=== PATIENT | female | born 1965 | race Hispanic/Latino ===

== ENCOUNTER 2018-12-22 09:20 | Emergency (ER) | payer MEDICARE ==
[2018-12-22 09:26] VITALS: BP 125/88
--- NOTE | 2018-12-22 09:40 | Emergency Department Report ---
Abscess Boil HPI - HPI Chief Complaint: Animal Bite Stated Complaint: SPIDER BITE Time Seen by Provider: 12/22/18 09:38 Duration: 2 Days Location: Lower Extremity Severity: Mild History: Yes Pain, Yes Previous History, Yes Insect Bite, No Fever, No Purulent Drainage, No Numbness, No Foreign Body HPI: 53 yo with insect bite RLE 2 days ago. no abscess. red and inflammed. no necrosis. no fever or chills. Home Medications: Previous Rx's Medication Instructions Recorded Last Taken Type Amoxicillin [Trimox CAP] 500 mg PO BID #20 capsule 12/22/18 Unknown Rx Allergies/Adverse Reactions: Allergies Allergy/AdvReac Type Severity Reaction Status Date / Time No Known Allergies Allergy Verified 12/22/18 09:28 ED Review of Systems ROS: Stated complaint: SPIDER BITE Other details as noted in HPI Comment: All other systems reviewed and negative ED Past Medical Hx - Past Medical History Previous Medical History?: No - Surgical History Past Surgical History?: Yes Additional Surgical History: appendectomy, knee surg - Social History Smoking Status: Current Every Day Smoker - Medications Home Medications: Home Medications Medication Instructions Recorded Confirmed Last Taken Type Amoxicillin [Trimox CAP] 500 mg PO BID #20 capsule 12/22/18 Unknown Rx ED Abscess Boil Physical Exam - Exam General: Vital signs noted. No distress. Alert and acting appropriately. Exam: Yes Surrounding Cellulites/Erythema, Yes Normal Neurologic Exam, Yes Normal Circulation, No Tenderness, No Fluctuance, No Lymphangitis, No Crepitation, No Heart Murmur ED Course Vital Signs 12/22/18 09:21 Temperature 98.3 F Pulse Rate 79 Respiratory 16 Rate Blood Pressure 125/88 [Right] O2 Sat by Pulse 97 Oximetry Critical care attestation.: If time is entered above; I have spent that time in minutes in the direct care of this critically ill patient, excluding procedure time. ED Medical Decision Making - Medical Decision Making no abscess no I/D insect bite RLE 2 d ago no fever/necrosis red and inflamed neurovasc intact ambulatory dc home with dc plan of care Vital Signs 12/22/18 09:21 Temperature 98.3 F Pulse Rate 79 Respiratory 16 Rate Blood Pressure 125/88 [Right] O2 Sat by Pulse 97 Oximetry - Differential Diagnosis simple bite ED Disposition Clinical Impression: Insect bite, Cellulitis Disposition: DC-01 TO HOME OR SELFCARE Is pt being admited?: No Does the pt Need Aspirin: No Condition: Stable Instructions: Insect Bite or Sting (ED) Additional Instructions: WARM COMPRESSES MOTRIN OR TYLENOL OVER THE COUNTER FOR PAIN MED ORDERED HERE TODAY Prescriptions: Amoxicillin [Trimox CAP] 500 mg PO BID #20 capsule Referrals: VALERIA NEGRON MD [Staff Physician] - 3-5 Days Time of Disposition: 09:38
== END 2018-12-22 09:45 | disposition home or self-care (01) ==
LOC: ED 09:20
DX: L03.115 Cellulitis of right lower limb (principal); F17.200 Nicotine dependence, unspecified, uncomplicated; Z90.49 Acquired absence of other specified parts of digestive tract; Z98.890 Other specified postprocedural states
CPT/HCPCS: 99282